=== PATIENT | female | born 1940 | race Native Hawaiian/Other Pacific Islander ===

== ENCOUNTER 2016-04-30 08:42 | Outpatient (CLI) | payer OTHER, MEDICARE ==
[2016-04-30 09:09] LABS: PLATELET COUNT 212 K/uL (152-353)
[2016-04-30 09:50] LABS: POTASSIUM 4.4 mmol/L (3.6-5.2)
== END 2016-04-30 23:00 | disposition home or self-care (01) ==
LOC: LABW 08:42
PROVIDERS: Internal Medicine
DX: I12.9 Hypertensive chronic kidney disease with stage 1 through stage 4 chronic kidney disease, or unspecified chronic kidney disease (principal); E11.9 Type 2 diabetes mellitus without complications; I25.10 Atherosclerotic heart disease of native coronary artery without angina pectoris; N18.3 Chronic kidney disease, stage 3 (moderate); E78.4 Other hyperlipidemia; E03.8 Other specified hypothyroidism; I65.23 Occlusion and stenosis of bilateral carotid arteries; E21.2 Other hyperparathyroidism
CPT/HCPCS: 36415; 80053; 80061; 81000; 82043; 82306; 82570; 83036; 83970; 84439; 84443; 85027

== ENCOUNTER 2016-08-06 08:18 | Outpatient (CLI) | payer OTHER, MEDICARE ==
[2016-08-06 08:37] LABS: PLATELET COUNT 230 K/uL (152-353)
[2016-08-06 08:53] LABS: POTASSIUM 4.6 mmol/L (3.6-5.2)
== END 2016-08-06 09:20 | disposition home or self-care (01) ==
LOC: LABW 08:18
DX: I12.9 Hypertensive chronic kidney disease with stage 1 through stage 4 chronic kidney disease, or unspecified chronic kidney disease (principal); E11.9 Type 2 diabetes mellitus without complications; I25.10 Atherosclerotic heart disease of native coronary artery without angina pectoris; N18.3 Chronic kidney disease, stage 3 (moderate); E21.3 Hyperparathyroidism, unspecified; E78.4 Other hyperlipidemia; E03.8 Other specified hypothyroidism
CPT/HCPCS: 36415; 80053; 82043; 82306; 82570; 83036; 83970; 85027

== ENCOUNTER 2016-11-20 09:33 | Outpatient (CLI) | payer OTHER, MEDICARE ==
[2016-11-20 10:56] LABS: PLATELET COUNT 217 K/uL (152-353); POTASSIUM 4.6 mmol/L (3.6-5.2)
== END 2016-11-20 19:00 | disposition home or self-care (01) ==
LOC: LABW 09:33
PROVIDERS: Nurse Practitioner Family
DX: E21.4 Other specified disorders of parathyroid gland (principal); E11.9 Type 2 diabetes mellitus without complications; I12.9 Hypertensive chronic kidney disease with stage 1 through stage 4 chronic kidney disease, or unspecified chronic kidney disease; I25.10 Atherosclerotic heart disease of native coronary artery without angina pectoris; N18.3 Chronic kidney disease, stage 3 (moderate); E78.4 Other hyperlipidemia; E03.8 Other specified hypothyroidism
CPT/HCPCS: 36415; 80053; 81000; 82306; 83036; 83970; 84443; 85027

== ENCOUNTER → 2017-04-10 08:15 | Outpatient (CLI) | payer OTHER, MEDICARE ==
[2017-04-10 09:20] LABS: PLATELET COUNT 243 K/uL (152-353)
[2017-04-10 09:39] LABS: POTASSIUM 4.7 mmol/L (3.6-5.2)
== END | disposition home or self-care (01) ==
LOC: LABW 08:15
PROVIDERS: Internal Medicine
DX: I12.9 Hypertensive chronic kidney disease with stage 1 through stage 4 chronic kidney disease, or unspecified chronic kidney disease (principal); E78.4 Other hyperlipidemia; E03.8 Other specified hypothyroidism; E11.9 Type 2 diabetes mellitus without complications; N18.3 Chronic kidney disease, stage 3 (moderate); H81.10 Benign paroxysmal vertigo, unspecified ear; E55.9 Vitamin D deficiency, unspecified; I25.10 Atherosclerotic heart disease of native coronary artery without angina pectoris; I65.23 Occlusion and stenosis of bilateral carotid arteries; E21.0 Primary hyperparathyroidism
CPT/HCPCS: 36415; 80053; 80061; 81000; 82043; 82306; 82570; 83036; 83970; 84550; 85027

== ENCOUNTER 2017-08-27 10:33 | Outpatient (CLI) | payer OTHER, MEDICARE ==
[2017-08-27 10:54] LABS: PLATELET COUNT 236 K/uL (152-353)
== END 2017-08-27 22:49 | disposition home or self-care (01) ==
LOC: LABW 10:33
PROVIDERS: Nurse Practitioner Family
DX: E11.9 Type 2 diabetes mellitus without complications (principal); E03.8 Other specified hypothyroidism; E78.4 Other hyperlipidemia; I12.9 Hypertensive chronic kidney disease with stage 1 through stage 4 chronic kidney disease, or unspecified chronic kidney disease; N18.3 Chronic kidney disease, stage 3 (moderate); E87.1 Hypo-osmolality and hyponatremia
CPT/HCPCS: 36415; 82306; 83036; 83970; 84443; 85027

== ENCOUNTER 2017-09-21 15:58 | Emergency (ER) | payer OTHER, MEDICARE ==
[~2017-09-21] VITALS: Ht 160 cm; Wt 80.7 kg
[2017-09-21 16:05] VITALS: TEMP 98.1
[2017-09-21 19:16] VITALS: BP 169/76
== END 2017-09-21 19:16 | disposition home or self-care (01) ==
LOC: ED 15:58
PROC: 0S9C3ZZ Drainage of Right Knee Joint, Percutaneous Approach (ICD-10-PCS; principal; 2017-09-21)
DX: M25.461 Effusion, right knee (principal); M25.561 Pain in right knee; M13.861 Other specified arthritis, right knee; M79.1 Myalgia
CPT/HCPCS: 85379; 96372; 99284; J1020

== ENCOUNTER 2018-01-23 09:40 | Outpatient (CLI) | payer OTHER, MEDICARE ==
[2018-01-23 10:32] LABS: PLATELET COUNT 268 K/uL (152-353)
[2018-01-23 11:02] LABS: POTASSIUM 4.4 mmol/L (3.6-5.2)
== END 2018-01-23 20:12 | disposition home or self-care (01) ==
LOC: LABW 09:40
PROVIDERS: Internal Medicine
DX: I25.10 Atherosclerotic heart disease of native coronary artery without angina pectoris (principal); I10 Essential (primary) hypertension; E11.9 Type 2 diabetes mellitus without complications; N18.3 Chronic kidney disease, stage 3 (moderate); F41.8 Other specified anxiety disorders; E53.8 Deficiency of other specified B group vitamins
CPT/HCPCS: 36415; 80053; 80061; 81000; 82043; 82570; 82607; 82728; 83036; 83540; 83550; 84443; 85027

== ENCOUNTER 2018-05-08 10:49 | Outpatient (CLI) | payer OTHER, MEDICARE | END 2018-05-08 20:38 | disposition home or self-care (01) | LOC: LABW 10:49 | DX: E03.9 Hypothyroidism, unspecified (principal) | CPT/HCPCS: 36415; 84439; 84443 ==

== ENCOUNTER 2018-05-22 09:10 | Outpatient (CLI) | payer OTHER, MEDICARE ==
[2018-05-22 09:27] LABS: PLATELET COUNT 239 K/uL (152-353)
[2018-05-22 09:53] LABS: POTASSIUM 4.4 mmol/L (3.6-5.2)
== END 2018-05-22 19:38 | disposition home or self-care (01) ==
LOC: LABW 09:10
PROVIDERS: Internal Medicine
DX: Z71.3 Dietary counseling and surveillance (principal); Z00.00 Encounter for general adult medical examination without abnormal findings; I10 Essential (primary) hypertension; E03.9 Hypothyroidism, unspecified; E21.3 Hyperparathyroidism, unspecified; E11.42 Type 2 diabetes mellitus with diabetic polyneuropathy; E55.9 Vitamin D deficiency, unspecified
CPT/HCPCS: 36415; 80053; 80061; 81000; 82043; 82306; 82570; 83036; 84439; 84443; 85027

== ENCOUNTER 2018-09-26 09:15 | Outpatient (CLI) | payer OTHER, MEDICARE ==
[2018-09-26 09:29] LABS: PLATELET COUNT 227 K/uL (152-353)
[2018-09-26 09:51] LABS: POTASSIUM 4.6 mmol/L (3.6-5.2)
== END 2018-09-26 23:36 | disposition home or self-care (01) ==
LOC: LABW 09:15
PROVIDERS: Internal Medicine
DX: E03.8 Other specified hypothyroidism (principal); I10 Essential (primary) hypertension; E21.2 Other hyperparathyroidism; E11.42 Type 2 diabetes mellitus with diabetic polyneuropathy; I25.10 Atherosclerotic heart disease of native coronary artery without angina pectoris; E78.49 Other hyperlipidemia
CPT/HCPCS: 36415; 80053; 83036; 83970; 84443; 85027

== ENCOUNTER 2019-03-02 08:22 | Outpatient (CLI) | payer OTHER, MEDICARE ==
[2019-03-02 09:12] LABS: POTASSIUM 4.4 mmol/L (3.6-5.2)
[2019-03-02 09:47] LABS: PLATELET COUNT 235 K/uL (152-353)
== END 2019-03-02 22:53 | disposition home or self-care (01) ==
LOC: LABW 08:22
PROVIDERS: Internal Medicine
DX: Z71.3 Dietary counseling and surveillance (principal); E21.2 Other hyperparathyroidism; E78.49 Other hyperlipidemia; E03.8 Other specified hypothyroidism; N18.3 Chronic kidney disease, stage 3 (moderate); I25.10 Atherosclerotic heart disease of native coronary artery without angina pectoris; E11.42 Type 2 diabetes mellitus with diabetic polyneuropathy; R10.32 Left lower quadrant pain; D64.89 Other specified anemias; I12.9 Hypertensive chronic kidney disease with stage 1 through stage 4 chronic kidney disease, or unspecified chronic kidney disease
CPT/HCPCS: 36415; 80053; 80061; 81000; 82043; 82570; 82728; 83036; 83540; 83550; 84155; 84443; 84466; 85027; 85044

== ENCOUNTER 2019-10-29 08:29 | Outpatient (CLI) | payer OTHER, MEDICARE ==
[2019-10-29 09:11] LABS: POTASSIUM 4.4 mmol/L (3.6-5.2)
[2019-10-29 09:53] LABS: PLATELET COUNT 243 K/uL (152-353)
== END 2019-10-29 21:42 | disposition home or self-care (01) ==
LOC: LABW 08:29
PROVIDERS: Nurse Practitioner Family
DX: E21.0 Primary hyperparathyroidism (principal); E11.42 Type 2 diabetes mellitus with diabetic polyneuropathy; E03.8 Other specified hypothyroidism; E55.9 Vitamin D deficiency, unspecified; N18.3 Chronic kidney disease, stage 3 (moderate); I25.10 Atherosclerotic heart disease of native coronary artery without angina pectoris; D64.89 Other specified anemias
CPT/HCPCS: 36415; 80053; 81000; 82306; 83036; 83970; 84443; 85027

== ENCOUNTER 2020-07-19 09:05 | Outpatient (CLI) | payer OTHER, MEDICARE ==
[2020-07-19 09:45] LABS: PLATELET COUNT 193 K/uL (152-353)
[2020-07-19 10:13] LABS: POTASSIUM 4.3 mmol/L (3.6-5.2)
== END 2020-07-19 19:45 | disposition home or self-care (01) ==
LOC: LABW 09:05
PROVIDERS: ATTEND Internal Medicine
DX: Z00.00 Encounter for general adult medical examination without abnormal findings (principal); Z68.28 Body mass index [BMI] 28.0-28.9, adult; Z71.3 Dietary counseling and surveillance; E03.8 Other specified hypothyroidism; N18.31 Chronic kidney disease, stage 3a; I25.10 Atherosclerotic heart disease of native coronary artery without angina pectoris; E11.42 Type 2 diabetes mellitus with diabetic polyneuropathy; F41.8 Other specified anxiety disorders; M85.80 Other specified disorders of bone density and structure, unspecified site; E21.0 Primary hyperparathyroidism; E55.9 Vitamin D deficiency, unspecified; R26.81 Unsteadiness on feet; I65.23 Occlusion and stenosis of bilateral carotid arteries; Z12.31 Encounter for screening mammogram for malignant neoplasm of breast; I12.9 Hypertensive chronic kidney disease with stage 1 through stage 4 chronic kidney disease, or unspecified chronic kidney disease
CPT/HCPCS: 36415; 80053; 80061; 81000; 82043; 82306; 82570; 83036; 83970; 84443; 84550; 85027

== ENCOUNTER 2021-01-20 10:07 | Outpatient (CLI) | payer OTHER, MEDICARE ==
[2021-01-20 10:26] LABS: PLATELET COUNT 224 K/uL (152-353)
[2021-01-20 10:49] LABS: POTASSIUM 4.7 mmol/L (3.6-5.2)
== END 2021-01-20 19:36 | disposition home or self-care (01) ==
LOC: LAB 10:07
PROVIDERS: ATTEND Internal Medicine
DX: E11.42 Type 2 diabetes mellitus with diabetic polyneuropathy (principal); I12.9 Hypertensive chronic kidney disease with stage 1 through stage 4 chronic kidney disease, or unspecified chronic kidney disease; Z71.3 Dietary counseling and surveillance; Z68.28 Body mass index [BMI] 28.0-28.9, adult; E03.8 Other specified hypothyroidism; I25.10 Atherosclerotic heart disease of native coronary artery without angina pectoris; E21.0 Primary hyperparathyroidism; N18.31 Chronic kidney disease, stage 3a; M54.2 Cervicalgia; K59.01 Slow transit constipation; D63.8 Anemia in other chronic diseases classified elsewhere
CPT/HCPCS: 80053; 80061; 81000; 82043; 82306; 82570; 82728; 83036; 83540; 83550; 83970; 84443; 84466; 85027

== ENCOUNTER 2021-05-23 10:05 | Outpatient (CLI) | payer OTHER, MEDICARE ==
[2021-05-23 10:47] LABS: PLATELET COUNT 204 K/uL (152-353)
[2021-05-23 11:20] LABS: POTASSIUM 4.7 mmol/L (3.6-5.2)
== END 2021-05-23 18:56 | disposition home or self-care (01) ==
LOC: LAB 10:05
PROVIDERS: ATTEND Internal Medicine
DX: I25.10 Atherosclerotic heart disease of native coronary artery without angina pectoris (principal); Z68.28 Body mass index [BMI] 28.0-28.9, adult; E21.0 Primary hyperparathyroidism; E11.42 Type 2 diabetes mellitus with diabetic polyneuropathy; M54.2 Cervicalgia; Z71.3 Dietary counseling and surveillance; E03.8 Other specified hypothyroidism; N18.31 Chronic kidney disease, stage 3a; K59.01 Slow transit constipation; D63.8 Anemia in other chronic diseases classified elsewhere; I12.9 Hypertensive chronic kidney disease with stage 1 through stage 4 chronic kidney disease, or unspecified chronic kidney disease
CPT/HCPCS: 80053; 80061; 81000; 82043; 82306; 82570; 82728; 83036; 83540; 83550; 83970; 84443; 84466; 85027

== ENCOUNTER 2021-09-01 09:01 | Outpatient (CLI) | payer OTHER, MEDICARE | END 2021-09-01 21:10 | disposition home or self-care (01) | LOC: RAD 09:01 | PROVIDERS: ATTEND Internal Medicine | DX: Z12.31 Encounter for screening mammogram for malignant neoplasm of breast (principal); M81.0 Age-related osteoporosis without current pathological fracture ==

== ENCOUNTER 2021-09-12 10:02 | Outpatient (CLI) | payer OTHER, MEDICARE ==
[2021-09-12 10:20] LABS: PLATELET COUNT 243 K/uL (152-353)
[2021-09-12 11:52] LABS: POTASSIUM 4.3 mmol/L (3.6-5.2)
== END 2021-09-12 20:37 | disposition home or self-care (01) ==
LOC: LAB 10:02
PROVIDERS: ATTEND Internal Medicine
DX: Z00.00 Encounter for general adult medical examination without abnormal findings (principal); E03.8 Other specified hypothyroidism; I25.10 Atherosclerotic heart disease of native coronary artery without angina pectoris; E78.49 Other hyperlipidemia; F41.8 Other specified anxiety disorders; E21.0 Primary hyperparathyroidism; E55.9 Vitamin D deficiency, unspecified; N18.31 Chronic kidney disease, stage 3a; M85.88 Other specified disorders of bone density and structure, other site; Z12.31 Encounter for screening mammogram for malignant neoplasm of breast; I65.23 Occlusion and stenosis of bilateral carotid arteries; D64.89 Other specified anemias; E11.42 Type 2 diabetes mellitus with diabetic polyneuropathy; I12.9 Hypertensive chronic kidney disease with stage 1 through stage 4 chronic kidney disease, or unspecified chronic kidney disease
CPT/HCPCS: 80053; 80061; 81002; 82043; 82570; 83036; 84443; 85027

== ENCOUNTER → 2022-01-16 | Outpatient (CLI) | payer OTHER, MEDICARE ==
[2022-01-16 09:39] LABS: PLATELET COUNT 220 K/uL (152-353)
[2022-01-16 10:29] LABS: POTASSIUM 4.6 mmol/L (3.6-5.2)
== END ==
LOC: LABW 09:20
PROVIDERS: ATTEND Internal Medicine
DX: Z71.3 Dietary counseling and surveillance (principal); Z68.27 Body mass index [BMI] 27.0-27.9, adult; I25.10 Atherosclerotic heart disease of native coronary artery without angina pectoris; E03.8 Other specified hypothyroidism; E78.49 Other hyperlipidemia; F41.8 Other specified anxiety disorders; E21.0 Primary hyperparathyroidism; N18.31 Chronic kidney disease, stage 3a; E11.42 Type 2 diabetes mellitus with diabetic polyneuropathy; I12.9 Hypertensive chronic kidney disease with stage 1 through stage 4 chronic kidney disease, or unspecified chronic kidney disease
CPT/HCPCS: 36415; 80053; 80061; 82043; 82306; 83036; 84443; 84550; 85027

== ENCOUNTER 2022-02-28 15:24 | Inpatient (IN) | payer OTHER, MEDICARE ==
[2022-03-15 11:07] LABS: PLATELET COUNT 253 K/uL (152-353)
[2022-03-15 11:16] LABS: POTASSIUM 4.6 mmol/L (3.6-5.2)
== END 2022-03-18 10:42 | disposition still patient (30) ==
LOC: PAVB 15:24
PROVIDERS: ADMIT Family Medicine; ATTEND Family Medicine
DX: H81.10 Benign paroxysmal vertigo, unspecified ear (principal); M62.82 Rhabdomyolysis; M62.81 Muscle weakness (generalized); R26.2 Difficulty in walking, not elsewhere classified; R27.9 Unspecified lack of coordination; R41.841 Cognitive communication deficit; Z74.1 Need for assistance with personal care
CPT/HCPCS: 80053; 82550; 84484; 85027; 87081

== ENCOUNTER 2022-05-31 12:01 | Outpatient (CLI) | payer OTHER, MEDICARE ==
[2022-05-31 13:24] LABS: PLATELET COUNT 226 K/uL (152-353)
[2022-05-31 13:51] LABS: POTASSIUM 4.5 mmol/L (3.6-5.2)
== END 2022-05-31 19:35 | disposition home or self-care (01) ==
LOC: LAB 12:01
PROVIDERS: ATTEND Internal Medicine
DX: I10 Essential (primary) hypertension (principal); E03.8 Other specified hypothyroidism; I25.10 Atherosclerotic heart disease of native coronary artery without angina pectoris; E78.49 Other hyperlipidemia; E55.9 Vitamin D deficiency, unspecified; E11.42 Type 2 diabetes mellitus with diabetic polyneuropathy; D64.89 Other specified anemias
CPT/HCPCS: 80053; 80061; 81002; 82043; 82306; 82570; 82728; 83540; 83550; 83970; 84443; 84550; 85027

== ENCOUNTER 2022-07-26 12:02 | Outpatient (CLI) | payer OTHER, MEDICARE | END 2022-07-26 17:00 | disposition home or self-care (01) | LOC: LAB 12:02 | PROVIDERS: ATTEND Internal Medicine | DX: Z00.00 Encounter for general adult medical examination without abnormal findings (principal); R29.6 Repeated falls; I25.10 Atherosclerotic heart disease of native coronary artery without angina pectoris; E11.42 Type 2 diabetes mellitus with diabetic polyneuropathy; Z79.4 Long term (current) use of insulin; M62.82 Rhabdomyolysis; E21.3 Hyperparathyroidism, unspecified; F41.1 Generalized anxiety disorder; E78.49 Other hyperlipidemia; I10 Essential (primary) hypertension; E03.8 Other specified hypothyroidism; G25.81 Restless legs syndrome; I65.23 Occlusion and stenosis of bilateral carotid arteries; Z71.3 Dietary counseling and surveillance; J30.2 Other seasonal allergic rhinitis; R53.83 Other fatigue; R23.0 Cyanosis; D64.89 Other specified anemias; H61.21 Impacted cerumen, right ear; E55.9 Vitamin D deficiency, unspecified; M85.88 Other specified disorders of bone density and structure, other site | CPT/HCPCS: 84439; 84443 ==

== ENCOUNTER 2022-08-20 09:00 | Outpatient (CLI) | payer OTHER, MEDICARE | END 2022-08-20 19:20 | disposition home or self-care (01) | LOC: US 09:00 | PROVIDERS: ATTEND Internal Medicine | DX: R23.0 Cyanosis (principal) ==

== ENCOUNTER 2022-09-12 14:06 | Outpatient (CLI) | payer OTHER, MEDICARE ==
[2022-09-12 14:25] LABS: PLATELET COUNT 270 K/uL (152-353)
[2022-09-12 14:54] LABS: POTASSIUM 4.3 mmol/L (3.6-5.2)
== END 2022-09-12 20:11 | disposition home or self-care (01) ==
LOC: LAB 14:06
PROVIDERS: ATTEND Internal Medicine
DX: Z00.00 Encounter for general adult medical examination without abnormal findings (principal); R30.0 Dysuria; R29.6 Repeated falls; I25.10 Atherosclerotic heart disease of native coronary artery without angina pectoris; E11.42 Type 2 diabetes mellitus with diabetic polyneuropathy; Z79.4 Long term (current) use of insulin; M62.82 Rhabdomyolysis; E21.3 Hyperparathyroidism, unspecified; F41.1 Generalized anxiety disorder; G45.9 Transient cerebral ischemic attack, unspecified; E78.49 Other hyperlipidemia; I10 Essential (primary) hypertension; E03.8 Other specified hypothyroidism; G25.81 Restless legs syndrome; Z12.31 Encounter for screening mammogram for malignant neoplasm of breast; E55.9 Vitamin D deficiency, unspecified; M85.88 Other specified disorders of bone density and structure, other site; Z71.3 Dietary counseling and surveillance; J30.2 Other seasonal allergic rhinitis; R53.83 Other fatigue; R23.0 Cyanosis; D64.89 Other specified anemias; H61.21 Impacted cerumen, right ear
CPT/HCPCS: 80053; 81002; 82306; 83036; 84436; 84439; 84443; 85027

== ENCOUNTER 2022-09-19 16:44 | Inpatient (IN) | payer OTHER, MEDICARE | END 2022-10-16 08:54 | disposition still patient (30) | LOC: PAVB 16:44 | PROVIDERS: ADMIT Family Medicine; ATTEND Family Medicine | DX: E83.52 Hypercalcemia (principal); E87.1 Hypo-osmolality and hyponatremia; R41.0 Disorientation, unspecified; N18.31 Chronic kidney disease, stage 3a; M62.81 Muscle weakness (generalized); R26.2 Difficulty in walking, not elsewhere classified; R41.841 Cognitive communication deficit; R29.6 Repeated falls; Z74.1 Need for assistance with personal care | CPT/HCPCS: 87081 ==

== ENCOUNTER 2022-10-23 11:27 | Outpatient (CLI) | payer OTHER, MEDICARE ==
[2022-10-23 12:29] LABS: PLATELET COUNT 265 K/uL (152-353)
[2022-10-23 12:56] LABS: POTASSIUM 4.7 mmol/L (3.6-5.2)
== END 2022-10-23 20:25 | disposition home or self-care (01) ==
LOC: LAB 11:27
PROVIDERS: ATTEND Internal Medicine
DX: E83.52 Hypercalcemia (principal); I10 Essential (primary) hypertension; E11.9 Type 2 diabetes mellitus without complications; G40.909 Epilepsy, unspecified, not intractable, without status epilepticus; E83.42 Hypomagnesemia
CPT/HCPCS: 80053; 80061; 82542; 83036; 83735; 84443; 85027; 87081

== ENCOUNTER 2022-10-24 12:37 | Outpatient (CLI) | payer OTHER, MEDICARE | END 2022-10-24 19:49 | disposition home or self-care (01) | LOC: LAB 12:37 | PROVIDERS: ATTEND Internal Medicine | DX: R79.89 Other specified abnormal findings of blood chemistry (principal) | CPT/HCPCS: 83970; 84165; 84166 ==

== ENCOUNTER 2022-10-31 07:59 | Outpatient (CLI) | payer OTHER, MEDICARE | END 2022-10-31 18:55 | disposition home or self-care (01) | LOC: LAB 07:59 | PROVIDERS: ATTEND Internal Medicine | DX: G40.802 Other epilepsy, not intractable, without status epilepticus (principal) | CPT/HCPCS: 36415; 82542 ==

== ENCOUNTER 2022-11-07 07:38 | Outpatient (CLI) | payer OTHER, MEDICARE ==
[2022-11-07 08:04] LABS: POTASSIUM 4.5 mmol/L (3.6-5.2)
== END 2022-11-07 21:17 | disposition home or self-care (01) ==
LOC: LAB 07:38
PROVIDERS: ATTEND Internal Medicine
DX: I12.9 Hypertensive chronic kidney disease with stage 1 through stage 4 chronic kidney disease, or unspecified chronic kidney disease (principal); N18.31 Chronic kidney disease, stage 3a; E11.9 Type 2 diabetes mellitus without complications
CPT/HCPCS: 80053

== ENCOUNTER 2022-11-14 12:16 | Outpatient (CLI) | payer OTHER, MEDICARE | END 2022-11-14 19:18 | disposition home or self-care (01) | LOC: LAB 12:16 | PROVIDERS: ATTEND Internal Medicine | DX: R82.998 Other abnormal findings in urine (principal); R35.0 Frequency of micturition; R94.4 Abnormal results of kidney function studies | CPT/HCPCS: 81000 ==

== ENCOUNTER 2022-11-22 14:06 | Outpatient (CLI) | payer OTHER, MEDICARE | END 2022-11-22 19:31 | disposition home or self-care (01) | LOC: CT 14:06 | PROVIDERS: ATTEND Internal Medicine | DX: R41.0 Disorientation, unspecified (principal) ==

== ENCOUNTER 2023-04-30 18:26 | Outpatient (CLI) | payer OTHER ==
[~2023-04-30 18:26] MED LIST: ALPR0.2566 PO; ASPIR-LOW81 MG PO; ATEN50TA36 PO; AZEL137S NAS; CARB25TA29 PO; CLOP75TA2 PO; FAMO20TA4 PO; FLONASE AL50 MCG/ACT NAS; FLUOXETINE HYDR20 MG PO; KEPPRA1000 MG PO; LEVEMIR FL100 UNIT/M SC; LEVO0.1224 PO; LISI10TA11 PO; MAGN400T4 PO; MIRALAX17 GM PO; NEURONTIN 100M100 MG PO; NORVASC 5MG TAB PO; NOVOLOG100 UNIT/M; ONDA4TAB3 PO; TYLENOL325 MG PO
== END 2023-04-30 19:11 | disposition home or self-care (01) ==
LOC: RAD 18:26
PROVIDERS: ATTEND Internal Medicine
DX: S70.02XA Contusion of left hip, initial encounter (principal); Y92.89 Other specified places as the place of occurrence of the external cause